=== PATIENT | female | born 1955 | race Caucasian/White ===

== ENCOUNTER 2023-10-17 19:43 | Inpatient (IN) | payer MEDICARE ==
[~2023-10-17] VITALS: Ht 177.8 cm; Wt 67.7 kg
[2023-10-17] MEDS ORDERED: NITROGLYCERIN 0.4 MG/TAB BOTTLE ONE (20:25)
[2023-10-17] MEDS ORDERED: methylPREDNISolone SOD SUCC 125 MG/2ML VIAL ONE (20:25)
[2023-10-17] MEDS ORDERED: IPRATROPIUM NEB FS 0.5 MG/2.5 ML AMPUL.NEB NEB ONE (20:30)
[2023-10-17] MEDS ORDERED: methylPREDNISolone SOD SUCC 125 MG/2ML VIAL IV ONE (20:30)
[2023-10-17] MEDS ORDERED: NITROGLYCERIN 0.4 MG/TAB BOTTLE SL ONE (20:30)
[2023-10-17] MEDS ORDERED: ALBUTEROL FS 2.5 MG/3 ML VIAL.NEB NEB ONE (20:30)
[2023-10-17 20:52] LABS: BASOPHILS % (AUTO) 0.2 % (0.0-2.0); EOSINOPHILS # (AUTO) 0.1 K/uL (0.0-0.7); EOSINOPHILS % (AUTO) 0.5 % (0.0-6.0); HEMATOCRIT 32 % (33-45); HEMOGLOBIN 10.5 g/dL (11.5-14.8); LYMPHOCYTES # (AUTO) 1.1 K/uL (0.8-4.8); LYMPHOCYTES % (AUTO) 7.1 % (20.0-44.0); MEAN CORPUSCULAR HEMOGLOBIN 26 PG (26.0-33.0); MEAN CORPUSCULAR HGB CONC 33 g/dl (31.0-36.0); MEAN CORPUSCULAR VOLUME 79 fL (82-100); MONOCYTES # (AUTO) 0.9 K/uL (0.1-1.30); MONOCYTES % (AUTO) 6.3 % (2.0-12.0); NEUTROPHILS # (AUTO) 12.8 K/uL (1.8-8.9); NEUTROPHILS % (AUTO) 85.9 % (43.0-81.0); PLATELET COUNT (AUTO) 181 K/uL (150-450); RED BLOOD CELL COUNT(AUTO) 4.03 MIL/uL (4.0-5.2); RED CELL DISTRIBUTION WIDTH 29.2 % (11.5-15.0); WHITE BLOOD COUNT (AUTO) 14.9 K/uL (4.3-11.0)
[2023-10-17] MEDS ORDERED: IPRATROPIUM NEB FS 0.5 MG/2.5 ML AMPUL.NEB ONE (20:57)
[2023-10-17] MEDS ORDERED: ALBUTEROL FS 2.5 MG/3 ML VIAL.NEB ONE (20:57)
[2023-10-17 21:02] LABS: CALCIUM, SERUM 10.6 mg/dL (8.5-10.1); CARBON DIOXIDE 28 mmol/L (21-32); CHLORIDE 101 mmol/L (98-107); CREATININE 1.6 mg/dL (0.6-1.3); GLUCOSE 134 mg/dL (74-106); POTASSIUM 4.2 mmol/L (3.5-5.1); SODIUM SERUM 136 mmol/L (136-145); UREA NITROGEN, BLOOD 38 mg/dL (7-18)
[2023-10-17 21:08] VITALS: O2SAT 96
[2023-10-17 21:14] LABS: NT-PRO BNP 69 pg/mL (0-125)
[2023-10-17 21:18] VITALS: O2SAT 98
[2023-10-17 21:25] VITALS: O2SAT 98
[2023-10-17 21:35] VITALS: O2SAT 99
[2023-10-17] MEDS ORDERED: CEFEPIME 1 GM in IV D5W 50 ML IV ONE (22:00)
[2023-10-17] MEDS ORDERED: VANCOMYCIN 1 GM /D5W 250 ML PB IV ONE (22:21)
[2023-10-17] MEDS ORDERED: CEFEPIME 1 GM VIAL ONE (22:21)
[2023-10-17] MEDS ORDERED: VANCOMYCIN 1 GM in IV D5W 250 ML IV ONE (23:00)
[2023-10-17] MEDS ORDERED: IV NS 0.9% 1,000 ML BAG IV ONE (23:00)
[2023-10-17 23:19] LABS: APPEARANCE,URINE CLEAR (CLEAR); BILIRUBIN,URINE NEGATIVE (NEGATIVE); BLOOD, URINE NEGATIVE Ery/uL (NEGATIVE); COLOR,URINE YELLOW (YELLOW); KETONES,URINE NEGATIVE (NEGATIVE); LEUKOCYTE ESTERASE ,URINE NEGATIVE (NEGATIVE); NITRITE, URINE NEGATIVE (NEGATIVE); PROTEIN,URINE NEGATIVE (NEGATIVE); UGLUCOSE NEGATIVE (NEGATIVE); UROBILINOGEN,URINE 0.2 EU/dL (0.2)
[2023-10-17 23:55] VITALS: BP 153/94; TEMP 97.3; O2SAT 97
[2023-10-18] VITALS (13 sets, daily range): BP systolic 119–162; BP diastolic 70–96; TEMP 97.3–98.3; O2SAT 96–99
[2023-10-18] MEDS ORDERED: ZOLPIDEM TARTRATE 5 MG TABLET PO PRN (01:00)
[2023-10-18] MEDS ORDERED: ACETAMINOPHEN 325 MG TABLET PO PRN ×2 (01:00→09:00)
[2023-10-18] MEDS ORDERED: IPRATROPIUM NEB FS 0.5 MG/2.5 ML AMPUL.NEB NEB PRN (01:00)
[2023-10-18] MEDS ORDERED: ONDANSETRON HCL/PF 4 MG/2 ML VIAL IVP PRN (01:00)
[2023-10-18] MEDS ORDERED: MAGNESIUM HYDROXIDE 30 ML UDC PO PRN (01:00)
[2023-10-18] MEDS ORDERED: MAG HYDROX/AL HYDROX/SIMETH 30 ML UDC PO PRN (01:00)
[2023-10-18] MEDS ORDERED: Z GUARD REMEDY 4 OZ OINT TP PRN (01:00)
[2023-10-18] MEDS: ALBUTEROL FS 2.5 MG/0.5 ML VIAL.NEB NEB SCH ×4 (01:22→20:12)
[2023-10-18] MEDS: methylPREDNISolone SOD SUCC 40 MG/ML VIAL IV SCH ×3 (05:49→21:11)
[2023-10-18 07:46] LABS: HEMATOCRIT 29 % (33-45); HEMOGLOBIN 9.4 g/dL (11.5-14.8); LYMPHOCYTES # (AUTO) 0.6 K/uL (0.8-4.8); LYMPHOCYTES % (AUTO) 4.3 % (20.0-44.0); MEAN CORPUSCULAR HEMOGLOBIN 26 PG (26.0-33.0); MEAN CORPUSCULAR HGB CONC 33 g/dl (31.0-36.0); MEAN CORPUSCULAR VOLUME 79 fL (82-100); MONOCYTES # (AUTO) 0.2 K/uL (0.1-1.30); MONOCYTES % (AUTO) 1.8 % (2.0-12.0); NEUTROPHILS # (AUTO) 12.3 K/uL (1.8-8.9); NEUTROPHILS % (AUTO) 93.9 % (43.0-81.0); PLATELET COUNT (AUTO) 159 K/uL (150-450); RED BLOOD CELL COUNT(AUTO) 3.64 MIL/uL (4.0-5.2); RED CELL DISTRIBUTION WIDTH 28.2 % (11.5-15.0); WHITE BLOOD COUNT (AUTO) 13.1 K/uL (4.3-11.0)
[2023-10-18] MEDS ORDERED: HYDR-4303 PO (07:59)
[2023-10-18] MEDS ORDERED: NITR0.4T48 SL (07:59)
[2023-10-18] MEDS ORDERED: ASPI-1420 PO (07:59)
[2023-10-18] MEDS ORDERED: MORP100S3 PO (07:59)
[2023-10-18] MEDS ORDERED: ZINC50TA65 PO (07:59)
[2023-10-18] MEDS ORDERED: CHLO25TA2 PO (07:59)
[2023-10-18] MEDS ORDERED: BENZ200C53 PO (07:59)
[2023-10-18] MEDS ORDERED: MONT10TA22 PO (07:59)
[2023-10-18] MEDS ORDERED: ROSU10TA2 PO (07:59)
[2023-10-18] MEDS ORDERED: ACET-868 PO (07:59)
[2023-10-18] MEDS ORDERED: SENN-261 PO (07:59)
[2023-10-18] MEDS ORDERED: SPIR25TA6 PO (07:59)
[2023-10-18] MEDS ORDERED: LORA10TA7 PO (07:59)
[2023-10-18] MEDS ORDERED: GUAI120013 PO (07:59)
[2023-10-18] MEDS ORDERED: POLY17PO4 PO (07:59)
[2023-10-18] MEDS ORDERED: FLUT16SP (07:59)
[2023-10-18] MEDS ORDERED: FAMO20TA8 PO (07:59)
[2023-10-18] MEDS ORDERED: MAG30ORA PO (07:59)
[2023-10-18] MEDS ORDERED: HYDR-4077 PO (07:59)
[2023-10-18] MEDS ORDERED: MAGN400O6 PO (07:59)
[2023-10-18] MEDS ORDERED: ASCO-352 PO (07:59)
[2023-10-18] MEDS ORDERED: LORA-259 PO (07:59)
[2023-10-18] MEDS ORDERED: MULT-447 PO (07:59)
[2023-10-18] MEDS ORDERED: CALC500T13 PO (07:59)
[2023-10-18] MEDS ORDERED: METH4TAB17 PO (07:59)
[2023-10-18] MEDS ORDERED: ACET200V4 INH (07:59)
[2023-10-18] MEDS ORDERED: IPRA3AMP23 IH (07:59)
[2023-10-18 08:23] LABS: CALCIUM, SERUM 10.9 mg/dL (8.5-10.1); CREATININE 1.2 mg/dL (0.6-1.3); MAGNESIUM 2.2 mg/dL (1.8-2.4); PHOSPHORUS 3.6 mg/dL (2.5-4.9); POTASSIUM 4.2 mmol/L (3.5-5.1)
[2023-10-18] MEDS ORDERED: PANTOPRAZOLE 40 MG VIAL IV SCH (09:00)
[2023-10-18] MEDS: ATORVASTATIN 40 MG TABLET PO SCH (09:22)
[2023-10-18] MEDS: ASPIRIN EC 81 MG TABLET.DR PO SCH (09:22)
[2023-10-18] MEDS: hydrALAZINE HCL 50 MG TABLET PO SCH ×2 (09:22→16:50)
[2023-10-18] MEDS: SPIRONOLACTONE 25 MG TABLET PO SCH (09:23)
[2023-10-18] MEDS: GUAIFENESIN LA 600 MG TABLET.SA PO SCH ×4 (09:23→21:11)
[2023-10-18] MEDS: LORATADINE 10 MG TABLET PO SCH (09:23)
[2023-10-18] MEDS: FAMOTIDINE (20 MG) 20 MG TABLET PO SCH ×2 (09:23→16:50)
[2023-10-18] MEDS: HEPARIN SODIUM, PORCINE 5000 UNITS/1 ML VIAL SQ SCH ×2 (09:33→21:12)
[2023-10-18] MEDS: MONTELUKAST SODIUM (10MG) 10 MG TABLET PO SCH (21:11)
[2023-10-18] MEDS: CEFEPIME 1 GM in IV D5W 50 ML IV SCH (23:07)
[2023-10-18] MEDS: VANCOMYCIN 1 GM in IV D5W 250ml IV SCH (23:40)
[2023-10-19] VITALS (15 sets, daily range): BP systolic 119–172; BP diastolic 70–95; TEMP 97–99.1; O2SAT 95–100
[2023-10-19] MEDS: ALBUTEROL FS 2.5 MG/0.5 ML VIAL.NEB NEB SCH ×4 (02:11→20:03)
[2023-10-19] MEDS: methylPREDNISolone SOD SUCC 40 MG/ML VIAL IV SCH ×3 (05:06→21:10)
[2023-10-19 06:48] LABS: BASOPHILS # (AUTO) 0.1 K/uL (0.0-0.2); BASOPHILS % (AUTO) 0.5 % (0.0-2.0); HEMATOCRIT 29 % (33-45); HEMOGLOBIN 9.6 g/dL (11.5-14.8); LYMPHOCYTES # (AUTO) 0.5 K/uL (0.8-4.8); LYMPHOCYTES % (AUTO) 2.7 % (20.0-44.0); MEAN CORPUSCULAR HEMOGLOBIN 26 PG (26.0-33.0); MEAN CORPUSCULAR HGB CONC 33 g/dl (31.0-36.0); MEAN CORPUSCULAR VOLUME 80 fL (82-100); MONOCYTES # (AUTO) 0.4 K/uL (0.1-1.30); MONOCYTES % (AUTO) 2.3 % (2.0-12.0); NEUTROPHILS # (AUTO) 17.5 K/uL (1.8-8.9); NEUTROPHILS % (AUTO) 94.5 % (43.0-81.0); PLATELET COUNT (AUTO) 135 K/uL (150-450); RED BLOOD CELL COUNT(AUTO) 3.67 MIL/uL (4.0-5.2); RED CELL DISTRIBUTION WIDTH 29.1 % (11.5-15.0); WHITE BLOOD COUNT (AUTO) 18.5 K/uL (4.3-11.0)
[2023-10-19 07:20] LABS: ALBUMIN 2.9 g/dL (3.4-5.0); BILIRUBIN,TOTAL 0.2 mg/dL (0.2-1.0); CALCIUM, SERUM 10.2 mg/dL (8.5-10.1); CREATININE 1.2 mg/dL (0.6-1.3); MAGNESIUM 2.4 mg/dL (1.8-2.4); PHOSPHORUS 2.8 mg/dL (2.5-4.9); TOTAL PROTEIN, SERUM 6.4 g/dL (6.4-8.2)
[2023-10-19] MEDS: hydrALAZINE HCL 50 MG TABLET PO SCH ×2 (08:32→16:05)
[2023-10-19] MEDS: FAMOTIDINE (20 MG) 20 MG TABLET PO SCH ×2 (08:32→16:05)
[2023-10-19] MEDS: ATORVASTATIN 40 MG TABLET PO SCH (08:32)
[2023-10-19] MEDS: ASPIRIN EC 81 MG TABLET.DR PO SCH (08:33)
[2023-10-19] MEDS: GUAIFENESIN LA 600 MG TABLET.SA PO SCH ×2 (08:33→21:16)
[2023-10-19] MEDS: LORATADINE 10 MG TABLET PO SCH (08:33)
[2023-10-19] MEDS: SPIRONOLACTONE 25 MG TABLET PO SCH (08:33)
[2023-10-19] MEDS: HEPARIN SODIUM, PORCINE 5000 UNITS/1 ML VIAL SQ SCH ×2 (08:34→21:11)
[2023-10-19] MEDS: NITROGLYCERIN 0.4 MG/TAB BOTTLE SL PRN ×2 (16:55→17:08)
[2023-10-19] MEDS: ISOSORBIDE DINITRATE (20MG) 20 MG TABLET PO SCH (18:05)
[2023-10-19] MEDS: CEFEPIME 1 GM in IV D5W 50 ML IV SCH (21:10)
[2023-10-19] MEDS: VANCOMYCIN 1 GM in IV D5W 250ml IV SCH (22:54)
[2023-10-19] MEDS: MONTELUKAST SODIUM (10MG) 10 MG TABLET PO SCH (22:54)
[2023-10-20] VITALS (13 sets, daily range): BP systolic 117–144; BP diastolic 73–95; TEMP 98.2–98.8; O2SAT 95–100
[2023-10-20] MEDS: ALBUTEROL FS 2.5 MG/0.5 ML VIAL.NEB NEB SCH ×6 (01:57→23:30)
[2023-10-20] MEDS: methylPREDNISolone SOD SUCC 40 MG/ML VIAL IV SCH (05:21)
[2023-10-20 08:07] LABS: PTH, INTACT 59 pg/mL (15-65)
[2023-10-20 08:09] LABS: CALCIUM, SERUM 10.3 mg/dL (8.5-10.1); CREATININE 1.2 mg/dL (0.6-1.3); POTASSIUM 4.1 mmol/L (3.5-5.1)
[2023-10-20] MEDS: PANTOPRAZOLE 40 MG TABLET.DR PO SCH (08:20)
[2023-10-20] MEDS: ATORVASTATIN 40 MG TABLET PO SCH ×2 (08:20→08:49)
[2023-10-20] MEDS: FAMOTIDINE (20 MG) 20 MG TABLET PO SCH ×2 (08:20→16:25)
[2023-10-20] MEDS: ASPIRIN EC 81 MG TABLET.DR PO SCH (08:20)
[2023-10-20] MEDS: LORATADINE 10 MG TABLET PO SCH (08:20)
[2023-10-20] MEDS: GUAIFENESIN LA 600 MG TABLET.SA PO SCH ×2 (08:20→21:43)
[2023-10-20] MEDS: SPIRONOLACTONE 25 MG TABLET PO SCH ×2 (08:20→08:49)
[2023-10-20] MEDS: HEPARIN SODIUM, PORCINE 5000 UNITS/1 ML VIAL SQ SCH ×2 (08:22→21:44)
[2023-10-20] MEDS: ISOSORBIDE DINITRATE (20MG) 20 MG TABLET PO SCH ×4 (08:23→16:24)
[2023-10-20] MEDS: hydrALAZINE HCL 50 MG TABLET PO SCH ×2 (08:23→16:25)
[2023-10-20] MEDS: NITROGLYCERIN 30 GM TUBE TP SCH ×2 (08:50→21:44)
[2023-10-20] MEDS ORDERED: ALBUTEROL FS 2.5 MG/0.5 ML VIAL.NEB NEB SCH (09:30)
[2023-10-20] MEDS: LORAZEPAM 0.5 MG TABLET PO PRN (10:35)
[2023-10-20] MEDS: CEFEPIME 2 GM in IV D5W 100 ML IV SCH ×2 (10:42→21:42)
[2023-10-20 13:08] LABS: *SPE A/G RATIO 1.2 (0.7-1.7); *SPE ALPHA-1-GLOBULIN 0.2 g/dL (0.0-0.4); *SPE ALPHA-2-GLOBULIN 0.8 g/dL (0.4-1.0); *SPE GLOBULIN, TOTAL 2.6 g/dL (2.2-3.9); *SPE M-SPIKE Not Observed g/dL (Not Observed); *SPE PROTEIN TOTAL 5.6 g/dL (6.0-8.5); *SPEGAMMA GLOBULIN 0.6 g/dL (0.4-1.8)
[2023-10-20] MEDS: MONTELUKAST SODIUM (10MG) 10 MG TABLET PO SCH (21:42)
[2023-10-20] MEDS: VANCOMYCIN 1.25 GM in IV D5W 250 ML IV SCH (22:59)
[2023-10-21] VITALS (17 sets, daily range): BP systolic 101–140; BP diastolic 66–83; TEMP 98–98.6; O2SAT 95–100
[2023-10-21] MEDS: ALBUTEROL FS 2.5 MG/0.5 ML VIAL.NEB NEB SCH ×6 (02:08→22:48)
[2023-10-21 07:15] LABS: CALCIUM, SERUM 10.3 mg/dL (8.5-10.1); CREATININE 1.3 mg/dL (0.6-1.3); POTASSIUM 4.4 mmol/L (3.5-5.1)
[2023-10-21] MEDS: PANTOPRAZOLE 40 MG TABLET.DR PO SCH (08:04)
[2023-10-21] MEDS: ATORVASTATIN 40 MG TABLET PO SCH ×2 (09:00→09:59)
[2023-10-21] MEDS: HEPARIN SODIUM, PORCINE 5000 UNITS/1 ML VIAL SQ SCH ×2 (09:47→20:32)
[2023-10-21 09:56] LABS: IRON, SERUM 43 ug/dl (50-175); TOTAL IRON BINDING CAPACITY 367 ug/dl (250-450)
[2023-10-21] MEDS: methylPREDNISolone SOD SUCC 40 MG/ML VIAL IV SCH (09:58)
[2023-10-21] MEDS: FAMOTIDINE (20 MG) 20 MG TABLET PO SCH ×2 (09:58→16:42)
[2023-10-21] MEDS: LORATADINE 10 MG TABLET PO SCH (09:58)
[2023-10-21] MEDS: hydrALAZINE HCL 50 MG TABLET PO SCH ×2 (09:59→16:42)
[2023-10-21] MEDS: SPIRONOLACTONE 25 MG TABLET PO SCH (09:59)
[2023-10-21] MEDS: ASPIRIN EC 81 MG TABLET.DR PO SCH (09:59)
[2023-10-21] MEDS: GUAIFENESIN LA 600 MG TABLET.SA PO SCH ×2 (10:00→20:32)
[2023-10-21] MEDS: ISOSORBIDE DINITRATE (20MG) 20 MG TABLET PO SCH ×2 (10:00→16:43)
[2023-10-21] MEDS: CEFEPIME 2 GM in IV D5W 100 ML IV SCH ×2 (10:02→20:30)
[2023-10-21] MEDS: NITROGLYCERIN 30 GM TUBE TP SCH ×2 (10:03→21:00)
[2023-10-21 10:11] LABS: FERRITIN 29 ng/mL (8-388)
[2023-10-21] MEDS: LORAZEPAM 0.5 MG TABLET PO PRN (20:37)
[2023-10-21] MEDS: MONTELUKAST SODIUM (10MG) 10 MG TABLET PO SCH (21:20)
[2023-10-21] MEDS: VANCOMYCIN 1.25 GM in IV D5W 250 ML IV SCH (22:09)
[2023-10-22] VITALS (10 sets, daily range): BP systolic 123; BP diastolic 88; TEMP 98.8; O2SAT 97–99
[2023-10-22] MEDS: ALBUTEROL FS 2.5 MG/0.5 ML VIAL.NEB NEB SCH ×6 (03:25→23:16)
[2023-10-22 06:55] LABS: BASOPHILS % (AUTO) 0.1 % (0.0-2.0); EOSINOPHILS % (AUTO) 0.4 % (0.0-6.0); HEMATOCRIT 25 % (33-45); HEMOGLOBIN 8.4 g/dL (11.5-14.8); LYMPHOCYTES % (AUTO) 10.7 % (20.0-44.0); MEAN CORPUSCULAR HEMOGLOBIN 26 PG (26.0-33.0); MEAN CORPUSCULAR HGB CONC 33 g/dl (31.0-36.0); MEAN CORPUSCULAR VOLUME 80 fL (82-100); MONOCYTES # (AUTO) 0.7 K/uL (0.1-1.30); MONOCYTES % (AUTO) 7.2 % (2.0-12.0); NEUTROPHILS # (AUTO) 7.7 K/uL (1.8-8.9); NEUTROPHILS % (AUTO) 81.6 % (43.0-81.0); PLATELET COUNT (AUTO) 135 K/uL (150-450); RED BLOOD CELL COUNT(AUTO) 3.17 MIL/uL (4.0-5.2); RED CELL DISTRIBUTION WIDTH 28.5 % (11.5-15.0); WHITE BLOOD COUNT (AUTO) 9.5 K/uL (4.3-11.0)
[2023-10-22 07:15] LABS: CALCIUM, SERUM 8.6 mg/dL (8.5-10.1); CREATININE 1.1 mg/dL (0.6-1.3); MAGNESIUM 2.2 mg/dL (1.8-2.4); PHOSPHORUS 3.2 mg/dL (2.5-4.9); POTASSIUM 4.3 mmol/L (3.5-5.1)
[2023-10-22] MEDS: PANTOPRAZOLE 40 MG TABLET.DR PO SCH (07:43)
[2023-10-22] MEDS: CEFEPIME 2 GM in IV D5W 100 ML IV SCH ×2 (09:26→20:42)
[2023-10-22] MEDS: methylPREDNISolone SOD SUCC 40 MG/ML VIAL IV SCH (09:43)
[2023-10-22] MEDS: ASPIRIN EC 81 MG TABLET.DR PO SCH (09:47)
[2023-10-22] MEDS: SPIRONOLACTONE 25 MG TABLET PO SCH (09:47)
[2023-10-22] MEDS: GUAIFENESIN LA 600 MG TABLET.SA PO SCH ×2 (09:47→21:21)
[2023-10-22] MEDS: ATORVASTATIN 40 MG TABLET PO SCH (09:47)
[2023-10-22] MEDS: hydrALAZINE HCL 50 MG TABLET PO SCH ×2 (09:47→17:43)
[2023-10-22] MEDS: ISOSORBIDE DINITRATE (20MG) 20 MG TABLET PO SCH ×2 (09:47→17:42)
[2023-10-22] MEDS: LORATADINE 10 MG TABLET PO SCH (09:47)
[2023-10-22] MEDS: NITROGLYCERIN 30 GM TUBE TP SCH ×2 (09:48→21:18)
[2023-10-22] MEDS: FAMOTIDINE (20 MG) 20 MG TABLET PO SCH ×2 (09:52→17:42)
[2023-10-22] MEDS: HEPARIN SODIUM, PORCINE 5000 UNITS/1 ML VIAL SQ SCH ×2 (09:54→21:20)
[2023-10-22 12:05] LABS: BAND % (MANUAL) 2 % (0.0-5.0); LYMPHOCYTES % (MANUAL) 12 % (16-48); MONOCYTES % (MANUAL) 6 % (0-11.0); NEUTROPHILS % (MANUAL) 80 (42-76)
[2023-10-22 12:06] LABS: ANISOCYTOSIS 1+; BASOPHILS % (MANUAL) 0 % (0.0-2.0); EOSINOPHILS % (MANUAL) 0 % (0-4); OVALOCYTES 1+; PLATELET ESTIMATE ADEQUATE
[2023-10-22] MEDS ORDERED: VANC1.2526 IV (13:52)
[2023-10-22] MEDS ORDERED: CEFE2FRO IV (13:52)
[2023-10-22] MEDS ORDERED: PRED20TA PO (13:52)
[2023-10-22] MEDS ORDERED: GUAI600T53 PO (13:52)
[2023-10-22] MEDS: MONTELUKAST SODIUM (10MG) 10 MG TABLET PO SCH (21:21)
[2023-10-22] MEDS: VANCOMYCIN 1.25 GM in IV D5W 250 ML IV SCH (23:10)
[2023-10-23] VITALS (13 sets, daily range): BP systolic 128–147; BP diastolic 86–96; TEMP 97.7–98.4; O2SAT 95–99
[2023-10-23] MEDS: ALBUTEROL FS 2.5 MG/0.5 ML VIAL.NEB NEB SCH ×6 (03:22→23:55)
[2023-10-23 06:13] LABS: CREATININE 1.2 mg/dL (0.6-1.3); POTASSIUM 4.2 mmol/L (3.5-5.1)
[2023-10-23] MEDS: HEPARIN SODIUM, PORCINE 5000 UNITS/1 ML VIAL SQ SCH ×2 (09:00→21:15)
[2023-10-23] MEDS: CEFEPIME 2 GM in IV D5W 100 ML IV SCH ×2 (10:35→21:12)
[2023-10-23] MEDS: SPIRONOLACTONE 25 MG TABLET PO SCH (10:35)
[2023-10-23] MEDS: PANTOPRAZOLE 40 MG TABLET.DR PO SCH (10:35)
[2023-10-23] MEDS: methylPREDNISolone SOD SUCC 40 MG/ML VIAL IV SCH (10:35)
[2023-10-23] MEDS: ASPIRIN EC 81 MG TABLET.DR PO SCH (10:36)
[2023-10-23] MEDS: LORATADINE 10 MG TABLET PO SCH (10:36)
[2023-10-23] MEDS: hydrALAZINE HCL 50 MG TABLET PO SCH ×2 (10:36→17:03)
[2023-10-23] MEDS: ISOSORBIDE DINITRATE (20MG) 20 MG TABLET PO SCH ×2 (10:37→17:03)
[2023-10-23] MEDS: FAMOTIDINE (20 MG) 20 MG TABLET PO SCH ×2 (10:37→17:03)
[2023-10-23] MEDS: ATORVASTATIN 40 MG TABLET PO SCH (10:37)
[2023-10-23] MEDS: GUAIFENESIN LA 600 MG TABLET.SA PO SCH ×2 (10:37→21:13)
[2023-10-23] MEDS: NITROGLYCERIN 30 GM TUBE TP SCH ×2 (10:38→21:00)
[2023-10-23] MEDS: MONTELUKAST SODIUM (10MG) 10 MG TABLET PO SCH (21:13)
[2023-10-24] VITALS (8 sets, daily range): BP systolic 116; BP diastolic 77; TEMP 99.3; O2SAT 98–99
[2023-10-24] MEDS: ALBUTEROL FS 2.5 MG/0.5 ML VIAL.NEB NEB SCH ×3 (04:08→11:33)
[2023-10-24] MEDS: PANTOPRAZOLE 40 MG TABLET.DR PO SCH (07:46)
[2023-10-24] MEDS: hydrALAZINE HCL 50 MG TABLET PO SCH (08:15)
[2023-10-24] MEDS: ASPIRIN EC 81 MG TABLET.DR PO SCH (08:15)
[2023-10-24] MEDS: FAMOTIDINE (20 MG) 20 MG TABLET PO SCH (08:15)
[2023-10-24] MEDS: GUAIFENESIN LA 600 MG TABLET.SA PO SCH (08:15)
[2023-10-24] MEDS: ATORVASTATIN 40 MG TABLET PO SCH (08:15)
[2023-10-24] MEDS: LORATADINE 10 MG TABLET PO SCH (08:15)
[2023-10-24] MEDS: SPIRONOLACTONE 25 MG TABLET PO SCH (08:16)
[2023-10-24] MEDS: ISOSORBIDE DINITRATE (20MG) 20 MG TABLET PO SCH (08:16)
[2023-10-24] MEDS: HEPARIN SODIUM, PORCINE 5000 UNITS/1 ML VIAL SQ SCH (08:18)
[2023-10-24] MEDS: CEFEPIME 2 GM in IV D5W 100 ML IV SCH ×2 (08:20→08:33)
[2023-10-24] MEDS: NITROGLYCERIN 30 GM TUBE TP SCH (08:39)
[2023-10-24] MEDS ORDERED: methylPREDNISolone SOD SUCC 40 MG/ML VIAL IV SCH (09:00)
== END 2023-10-24 12:00 | disposition home health service (06) | DRG 191 ==
LOC: ER 19:52 → TELE 22:08 → MED 10-21 10:16
PROVIDERS: ATTEND Nurse Practitioner Acute Care
DX: J44.1 Chronic obstructive pulmonary disease with (acute) exacerbation (principal); N17.9 Acute kidney failure, unspecified; K21.9 Gastro-esophageal reflux disease without esophagitis; I10 Essential (primary) hypertension; D50.9 Iron deficiency anemia, unspecified; E78.5 Hyperlipidemia, unspecified; E83.52 Hypercalcemia; F41.9 Anxiety disorder, unspecified; J43.9 Emphysema, unspecified; Z87.891 Personal history of nicotine dependence; Z99.81 Dependence on supplemental oxygen; E86.1 Hypovolemia; D72.829 Elevated white blood cell count, unspecified; R07.9 Chest pain, unspecified; Z95.2 Presence of prosthetic heart valve; Z88.0 Allergy status to penicillin; Z86.16 Personal history of COVID-19; Z87.01 Personal history of pneumonia (recurrent); T38.0X5A Adverse effect of glucocorticoids and synthetic analogues, initial encounter; Y92.009 Unspecified place in unspecified non-institutional (private) residence as the place of occurrence of the external cause
CPT/HCPCS: 36415; 71045-TC; 80048-TC; 80053-TC; 80061-TC; 80202-TC; 82550-TC; 82728-TC; 83540-TC; 83605-TC; 83735-TC; 83880; 83970; 84100-TC; 84155; 84165; 84484-TC; 85025-TC; 87040-TC; 87081-TC; 87086-TC; 93307-TC; 94799-TC; 97110-TC; 97116-TC; 97530-TC; A4223; C9113; G0378; J0692; J1644; J2920; J2930; J3370; J7030; J7040; J7060